=== PATIENT | male | born 1945 | race Two or more races ===

== ENCOUNTER 2024-09-15 08:26 | Day surgery (SDC) | payer BC ==
[~2024-09-15] VITALS: Ht 177.8 cm; Wt 90.7 kg
[2024-09-15] VITALS (7 sets, daily range): BP systolic 133–177; BP diastolic 61–81; PULSE 48–72; RESP 10–14; TEMP 98.1; O2SAT 97–99
[~2024-09-15 08:26] MED LIST: ASPI1TAB19 PO; ATOR40TA52 PO; BUPRTAB PO; CLOP75TA28 PO; INSREG3 SC; INSU1.2I SC; LOSA-533 PO; METO25TA5 PO; MORP30TA5 PO; NITR0.4S29 SL; ONDA-180 PO; OXYC-1050 PO; PANT40T PO
[2024-09-15] MEDS: IODIXANOL 320MG/ML 100ML BTL IV ONE ×2 (11:48→12:11)
[2024-09-15] MEDS: fentaNYL CITRATE 100 MCG/2 ML VL ONE (11:59)
[2024-09-15] MEDS: ANGIOMAX 250 MG VIAL IV ONE (11:59)
[2024-09-15] MEDS: MIDAZOLAM HCL 2MG/2ML 2ml VIAL (1mg/ml) ONE (12:00)
[2024-09-15] MEDS: LIDOCAINE 2%HCL (LOCAL ANESTH.) INJ 20ML MDV ONE (12:00)
[2024-09-15] MEDS: SODIUM CHL 0.9% 0 ML ONE (12:00)
[2024-09-15] MEDS: hydrALAZINE HCL 20 MG/ML VL ONE (12:29)
--- NOTE | 2024-09-15 12:53 | DVHOP2 ---
Operative Report Operative Report [employer] PROCEDURE REPORT [place], [place] Date of Service: 09/15/24 Cable Television Access Coordinator: Cayden Canas MD PROCEDURES PERFORMED: Coronary angiogram, left heart catheterization, conscious sedation administration and supervision, less than 15 minutes; fluoroscopy use and interpretation. US guided vascular access saved to pacs system, vein graft angiography, saphenous vein angio , [place] angiography PREOPERATIVE DIAGNOSES: Abnormal stress test with CCS class 3 angina, POSTOP DIAGNOSIS: cad DESCRIPTION OF PROCEDURE: The patient or appropriate family signed informed consent understanding the risks, benefits and alternatives of the procedure, they wished to proceed. The patient was brought to the cardiac research laboratory technician [place] The patient was prepped in a sterile fashion. Sedation was used per cardiac cath protocol. I administered 8 mL of 2% lidocaine to the right groin. . With an antegrade front wall puncture u sing US guidance cannulated the right rcommon femoral artery and placed a 6-[place] Glidesheath. N Next, a - [id number], JL4, and MPL and pigtail were used for coronary angiogram and LVEDP measurement and pressure pullback. At the completion of procedure, all guides and wires were removed, and there were no immediate complications. FINDINGS: RCA: prox RCA PORTABLE IRRIGATION OPERATOR LEFT MAIN: Moderate size left main,95% distal LM stenosis CIRCUMFLEX: PORTABLE IRRIGATION OPERATOR ostium LAD: LAD is a PORTABLE IRRIGATION OPERATOR SVG to CX patent mid vessel stent [place] to LAD widely patent CONCLUSIONS: 1. patent svg stent placed in 2022 2. unchanged coronary anatomy from 2022 [facility] 3. severe HTN, bp iwas 230 systolic during cath PLAN: Aggressive risk factor modification and medical management for the patient. needs stronger bp control CAYDEN CANAS MD Sep 15, 2024 12:53
== END 2024-09-15 15:05 | disposition home or self-care (01) ==
LOC: CATH 08:26
PROVIDERS: ATTEND Internal Medicine
DX: R94.39 Abnormal result of other cardiovascular function study (principal); I25.798 Atherosclerosis of other coronary artery bypass graft(s) with other forms of angina pectoris; I10 Essential (primary) hypertension; Z79.899 Other long term (current) drug therapy; Z95.1 Presence of aortocoronary bypass graft; Z95.5 Presence of coronary angioplasty implant and graft; Z87.891 Personal history of nicotine dependence; Z88.1 Allergy status to other antibiotic agents; Z88.8 Allergy status to other drugs, medicaments and biological substances
CPT/HCPCS: 93459; C1760; C1894; J0360; J1644; J2250; J3010; Q9967; 99152